=== PATIENT | female | born 1995 ===

== ENCOUNTER 2022-08-07 07:20 | Inpatient (IN) | payer BC ==
[2022-08-07] MEDS ORDERED: Carboprost Tromethamine 250 MCG/1 mL Vial IM PRN (10:06)
[2022-08-07] MEDS ORDERED: Methylergonovine 0.2 MG/1 ML Amp IM PRN (10:06)
[2022-08-07] MEDS ORDERED: Tranexamic Acid 1,000 MG in Sodium Chloride 0.9% 100 ML IV PRN (10:06)
[2022-08-07] MEDS ORDERED: Lidocaine 1% 50 ML MDV INJECT PRN (10:06)
[2022-08-07] MEDS ORDERED: Water For Irrigation,Sterile 1,000 ML Container IRR PRN (10:06)
[2022-08-07] MEDS ORDERED: Sodium Chloride 0.9% 20 ML SDV IV PRN (10:06)
[2022-08-07] MEDS ORDERED: Sodium Chloride 0.9% 10 ML Syringe FLUSH PRN (10:06)
[2022-08-07] MEDS ORDERED: Misoprostol 200 MCG Tab PO PRN (10:06)
[2022-08-07] MEDS ORDERED: Sodium Chloride 0.9% 2.5 ML Syringe FLUSH PRN (10:06)
[2022-08-07] MEDS ORDERED: Oxytocin/0.9 % Sodium Chloride 30 UNIT/500 ML BAG IV SCH ×2 (10:15→18:45)
[2022-08-07] MEDS: Butorphanol 1 MG/ML SDV IVPUSH PRN (10:50)
[2022-08-07 11:20] LABS: HEMATOCRIT 37.7 % (36.0-46.0); HEMOGLOBIN 12.7 g/dL (12.0-16.0); MEAN CORPUSCULAR HEMOGLOBIN 32.7 pg (27.0-32.0); MEAN CORPUSCULAR HGB CONC 33.7 g/dL (31.0-37.0); MEAN CORPUSCULAR VOLUME 97.2 fL (80.0-98.0); PLATELET COUNT,PLT 192 K/uL (150-400); RED BLOOD CELL COUNT 3.88 M/uL (4.30-5.90); WHITE BLOOD CELL COUNT,WBC 6.52 K/uL (4.0-11.0)
[2022-08-07] MEDS ORDERED: Phenylephrine HCl 0.5 MG/5 ML AMP IVPUSH PRN (11:40)
[2022-08-07] MEDS ORDERED: ePHEDrine 50 MG/ML SDV IVPUSH PRN ×2 (11:40)
[2022-08-07] MEDS ORDERED: Ropivacaine HCl/PF 400 MG in Premix Bag 1 BAG EPIDUR SCH (11:45)
[2022-08-07] MEDS ORDERED: Terbutaline 1 MG/ML SDV SUBCUT PRN (18:31)
[2022-08-07] MEDS: Lactated Ringers 1,000 ML IV SCH ×2 (19:13→23:01)
[2022-08-07] MEDS ORDERED: ceFAZolin 1 GM Vial ONE (23:32)
[2022-08-08] MEDS: Lactated Ringers 1,000 ML IV SCH ×3 (01:04→10:55)
[2022-08-08] MEDS ORDERED: Promethazine 25 MG Tab PO ONE (04:04)
[2022-08-08] MEDS: Butorphanol 1 MG/ML SDV IVPUSH PRN (04:07)
[2022-08-08] MEDS ORDERED: EPINEPHrine 1 MG/1 ML Amp ONE (09:04)
[2022-08-08] MEDS ORDERED: Morphine PF 10 MG/10 ML SDV ONE (09:04)
[2022-08-08] MEDS ORDERED: fentaNYL 100 MCG/2 ML SDV ONE ×3 (09:33→16:10)
[2022-08-08] MEDS ORDERED: Ondansetron 4 MG/2 ML SDV IVPUSH PRN ×3 (09:35→16:32)
[2022-08-08] MEDS ORDERED: ceFAZolin 1 GM Vial ONE ×4 (09:43→13:59)
[2022-08-08] MEDS ORDERED: Ondansetron 4 MG/2 ML SDV ONE ×2 (09:43→13:54)
[2022-08-08] MEDS ORDERED: Phenylephrine 1% 10 MG/ML SDV ONE (09:50)
[2022-08-08] MEDS ORDERED: Water For Injection, Sterile 40 ML ONE (12:17)
[2022-08-08] MEDS ORDERED: Morphine 2 MG/ML SYRINGE IVPUSH PRN (12:57)
[2022-08-08] MEDS ORDERED: HYDROmorphone 1 MG/ML Syringe IVPUSH PRN (12:57)
[2022-08-08] MEDS ORDERED: Albuterol 0.083% 2.5 MG/3 ML Neb Soln NEB PRN (12:57)
[2022-08-08] MEDS ORDERED: droPERidol 5 MG/2 ML SDV IVPUSH PRN (12:57)
[2022-08-08] MEDS ORDERED: Metoclopramide 10 MG/2 ML SDV IVPUSH PRN (12:57)
[2022-08-08] MEDS ORDERED: Naloxone 0.4 MG/ML SDV IVPUSH PRN (12:57)
[2022-08-08] MEDS ORDERED: fentaNYL 50 MCG/ML SDV IVPUSH PRN (12:57)
[2022-08-08] MEDS ORDERED: HYDROmorphone 2 MG/ML Syringe IVPUSH PRN (13:15)
[2022-08-08] MEDS ORDERED: fentaNYL 100 MCG/2 ML SDV IVPUSH PRN (13:15)
[2022-08-08] MEDS ORDERED: Sugammadex Sodium 200 MG/2 ML VIAL ONE (13:54)
[2022-08-08] MEDS ORDERED: Propofol 200 MG/20 ML SDV ONE (13:54)
[2022-08-08] MEDS ORDERED: Dexamethasone 4 MG/ML 5 ML MDV ONE (13:54)
[2022-08-08] MEDS ORDERED: Rocuronium Bromide 50 MG/5 ML Syringe ONE (13:54)
[2022-08-08] MEDS ORDERED: Lidocaine 2% 100 MG/5 ML Syringe ONE (13:54)
[2022-08-08] MEDS ORDERED: Ketorolac 30 MG/ML SDV ONE (13:54)
[2022-08-08] MEDS ORDERED: Metoclopramide 10 MG/2 ML SDV IVPUSH ONE (14:00)
[2022-08-08] MEDS ORDERED: Ropivacaine 0.5% 5 MG/ML 30 ML SDV ONE (15:16)
[2022-08-08] MEDS ORDERED: Metoprolol Tartrate 5 MG/5 ML SDV ONE (16:00)
[2022-08-08] MEDS ORDERED: Tranexamic Acid 1,000 MG/10 ML Vial ONE (16:06)
[2022-08-08] MEDS ORDERED: Ibuprofen 800 MG Tab PO PRN (16:32)
[2022-08-08] MEDS ORDERED: Tranexamic Acid 1,000 MG in Sodium Chloride 0.9% 100 ML IV PRN (16:32)
[2022-08-08] MEDS ORDERED: Lanolin 100% Cream 7 GM Tube TOP PRN (16:32)
[2022-08-08] MEDS ORDERED: Misoprostol 200 MCG Tab RECTAL PRN (16:32)
[2022-08-08] MEDS ORDERED: diphenhydrAMINE 50 MG/ML SDV IVPUSH PRN (16:32)
[2022-08-08] MEDS ORDERED: Methylergonovine 0.2 MG/1 ML Amp IM PRN (16:32)
[2022-08-08] MEDS ORDERED: Bisacodyl 10 MG Supp RECTAL PRN (16:32)
[2022-08-08] MEDS ORDERED: Oxytocin 10 Units/1 ML SDV IM PRN (16:32)
[2022-08-08] MEDS ORDERED: Acetaminophen/oxyCODONE 325-5 MG Tab PO PRN (16:32)
[2022-08-08] MEDS ORDERED: Lactated Ringers 1,000 ML IV SCH (16:45)
[2022-08-08] MEDS: Ketorolac 30 MG/ML SDV IVPUSH SCH ×2 (19:10→19:45)
[2022-08-08] MEDS: Docusate Sodium 100 MG Cap PO SCH (22:10)
[2022-08-08] MEDS: Acetaminophen 1,000 MG in Premix Bag 1 BAG IV PRN (22:11)
[2022-08-09] MEDS: Ketorolac 30 MG/ML SDV IVPUSH SCH ×4 (02:28→19:52)
[2022-08-09] MEDS: Acetaminophen 1,000 MG in Premix Bag 1 BAG IV PRN (03:55)
[2022-08-09 05:40] LABS: HEMATOCRIT 29.1 % (36.0-46.0); HEMOGLOBIN 9.7 g/dL (12.0-16.0)
[2022-08-09] MEDS: Acetaminophen/oxyCODONE 325-5 MG Tab PO PRN (07:25)
[2022-08-09] MEDS: Docusate Sodium 100 MG Cap PO SCH ×2 (08:50→20:04)
[2022-08-10] MEDS: Acetaminophen/oxyCODONE 325-5 MG Tab PO PRN (03:42)
[2022-08-10] MEDS: Docusate Sodium 100 MG Cap PO SCH (08:58)
== END 2022-08-10 12:30 | disposition home or self-care (01) | DRG 540 ==
LOC: MW.OBCHECK 07:20 → MW.OB 10:07 → OBSVTOIN 16:03 → INTOOBSV 16:03 → OBSVTOIN 08-08 16:03 → MW.OB 08-08 21:14
PROVIDERS: ADMIT Obstetrics & Gynecology Obstetrics; ATTEND Obstetrics & Gynecology
PROC: 10D00Z1 Extraction of Products of Conception, Low, Open Approach (ICD-10-PCS; principal; 2022-08-08)
DX: O48.0 Post-term pregnancy (principal); O62.1 Secondary uterine inertia; Z37.0 Single live birth; Z3A.40 40 weeks gestation of pregnancy; Z79.82 Long term (current) use of aspirin; Z79.899 Other long term (current) drug therapy
CPT/HCPCS: 36415; 51702; 85014; 85018; 85027; 86592; 86850; 86900; 86901; A9270-GY; J0131; J0171; J0595; J0690; J1100; J1170; J1885; J2274; J2370; J2405; J2590; J2704; J2765; J2795; J3010; J3490; J7120